=== PATIENT | male | born 2000 | race Caucasian/White ===

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

== ENCOUNTER 2020-12-24 14:10 | Outpatient (CLI) | payer OTHER | END 2020-12-24 23:59 | disposition home or self-care (01) | LOC: COV 14:10 | PROVIDERS: ATTEND Family Medicine | DX: U07.1 COVID-19 (principal) ==

== ENCOUNTER 2024-05-21 11:41 | Outpatient (CLI) | payer OTHER ==
--- NOTE | 2024-05-21 14:53 | XRAY Report ---
Lumbar Spine 2-3V HISTORY: 23 years of age, BACK PAIN, LUMBAR TECHNIQUE: Lumbar Spine 2-3V COMPARISON: None. FINDINGS/IMPRESSION: Alignment of the lumbar spine is anatomic. Vertebral body heights are well-maintained. Intervertebral disc space is well-maintained. Mild lower lumbar facet arthropathy. Reviewed by: Ella Michaels MD on 05/21/2024 2:52 PM PDT Approved by: Ella Michaels MD on 05/21/2024 2:52 PM PDT Station ID: [id number]
== END 2024-05-21 11:42 | disposition home or self-care (01) ==
LOC: DI.N 11:41
PROVIDERS: ATTEND Physician Assistant Medical
DX: M47.816 Spondylosis without myelopathy or radiculopathy, lumbar region (principal)